=== PATIENT | male | born 1980 | race Caucasian/White ===

== ENCOUNTER 2022-01-23 12:18 | Emergency (ER) | payer MEDICAID, OTHER ==
[~2022-01-23] VITALS: Ht 116.8 cm; Wt 124.0 kg
[2022-01-23] MEDS ORDERED: AMBR10TA4 PO ×2 (13:55→15:12)
[2022-01-23 14:02] VITALS: BP 132/90
== END 2022-01-23 14:06 | disposition home or self-care (01) ==
LOC: ER 12:22
DX: I10 Essential (primary) hypertension (principal); Z79.899 Other long term (current) drug therapy; Z88.0 Allergy status to penicillin; Z76.0 Encounter for issue of repeat prescription

== ENCOUNTER 2022-05-08 09:46 | Inpatient (IN) | payer MEDICAID ==
[~2022-05-08] VITALS: Ht 190.5 cm; Wt 124.3 kg
[~2022-05-08 09:46] MED LIST: AMBR10TA4 PO
[2022-05-08 10:35] LABS: Urine Bacteria None Seen /hpf (None Seen); Urine WBC None Seen /hpf (0 - 3)
[2022-05-08 10:45] LABS: Albumin 3.8 g/dL (3.4-5.0); Calcium 9.2 mg/dL (8.5-10.1); Magnesium 2.4 mg/dL (1.6-2.6); Potassium 4.5 mmol/L (3.5-5.1)
[2022-05-08 10:46] LABS: Basophils # (auto) 0.1 10 ^3/uL (0-0.2); Basophils % (auto) 0.7 % (0.0-2.0); Eosinophils # (auto) 0.2 10 ^3/uL (0-0.8); Eosinophils % (auto) 2.6 % (0.0-7.0); Hematocrit 48.2 % (41.0-53.0); Hemoglobin 16.4 g/dL (13.5-17.5); Lymphocytes # (auto) 1.8 10 ^3/uL (0.4-5.4); Lymphocytes % (auto) 22.5 % (10.0-50.0); Mean Corpuscular Hemoglobin 32.3 pg (28.0-32.0); Mean Corpuscular Hgb Conc. 34.1 g/dL (32.0-36.0); Mean Corpuscular Volume 94.7 fL (80.0-100.0); Monocytes # (auto) 0.7 10 ^3/uL (0-1.3); Monocytes % (auto) 9.2 % (0.0-12.0); Neutrophils # (auto) 5.3 10 ^3/uL (1.6-8.6); Nucleated Red Blood Cells % 0.2 %; Red Blood Cells 5.09 10^6/uL (4.5-5.90); Red Cell Distribution Width 14.6 % (11.8-14.3); White Blood Cell 8.2 10^3/uL (4.4-10.8)
[2022-05-08 10:48] LABS: BUN/Creatinine Ratio 14.2; Total Protein 6.6 g/dL (6.4-8.2)
[2022-05-08 10:53] LABS: INR 0.96 (0.9-1.15); Partial Thromboplastin Time 28.5 sec (24.6-33.4)
[2022-05-08] MEDS ORDERED: LEVO750T64 PO (10:56)
[2022-05-08] MEDS ORDERED: cefTRIAXone SOD 1,000 MG VL IM ONE (11:00)
[2022-05-08] MEDS ORDERED: ENOXAPARIN SOD 120 MG/0.8 ML SYRINGE SC ONE (11:30)
[2022-05-08] MEDS ORDERED: ASPirin 325 MG TAB PO ONE (11:30)
[2022-05-08 12:03] LABS: Urine Blood Normal /uL (Negative)
[2022-05-08] MEDS ORDERED: ONDANSETRON HCL 4 MG/2 ML VIAL IV PRN (13:45)
[2022-05-08] MEDS ORDERED: ACETAMINOPHEN 325 MG TAB PO PRN (13:45)
[2022-05-08] MEDS ORDERED: HYDROcodone-ACET 5/325MG TAB PO PRN (13:45)
[2022-05-08] MEDS ORDERED: DOCUSATE SOD 100 MG CAP PO PRN (13:45)
[2022-05-08] MEDS ORDERED: NITROGLYCERIN 0.4 MG SL TAB SL PRN (13:45)
[2022-05-08] MEDS ORDERED: MORPHINE SULFATE INJ 2 MG/ml SYRG IV PRN (13:45)
[2022-05-08] MEDS ORDERED: FURO40TA4 PO (13:50)
[2022-05-08] MEDS ORDERED: ALBUTEROL SULF 2.5 MG/0.5ML(0.5%) NEB SOLN NEB PRN (14:15)
[2022-05-08] MEDS ORDERED: DEXTROSE (50%) 50ML SYRG IV PRN (14:15)
[2022-05-08] MEDS ORDERED: IPRATROPIUM BROM 0.5 MG/2.5ML INH SOL NEB PRN (14:15)
[2022-05-08 14:49] VITALS: BP 123/70
[2022-05-08] MEDS ORDERED: LIDOCAINE 1% HCL (LOCAL ANESTH.) INJ 20ML MDV ONE (15:33)
[2022-05-08] MEDS: SODIUM CHLOR 0.9% PF (SALINE LOCK) 10ML VIAL/SYR IV SCH ×2 (15:53→21:46)
[2022-05-08 16:00] VITALS: BP 108/59
[2022-05-08] MEDS ORDERED: METF-370 PO (16:09)
[2022-05-08] MEDS ORDERED: POTA10TA51 PO (16:09)
[2022-05-08] MEDS ORDERED: SILD20TA PO (16:09)
[2022-05-08] MEDS ORDERED: ASPI-543 PO (16:09)
[2022-05-08] MEDS: FUROSEMIDE 40 MG TAB PO SCH (17:14)
[2022-05-08] MEDS: InsuLIN REG 1unit/0.01ml Soln (100units/ml) SC SCH (17:15)
[2022-05-08] MEDS: ACCU-CHEK COMFORT CURVE STRIP VI SCH ×2 (17:15→21:47)
[2022-05-08 20:00] VITALS: BP 101/63
[2022-05-08] MEDS: SILDENAFIL CITRATE 20 MG TAB PO SCH (20:35)
[2022-05-08] MEDS: ATORVASTATIN 20 MG TAB PO SCH (21:46)
[2022-05-08 22:00] VITALS: BP 103/57
[2022-05-08] MEDS ORDERED: InsuLIN REG 1unit/0.01ml Soln (100units/ml) SC SCH (22:00)
[2022-05-09 00:50] VITALS: BP 103/57
[2022-05-09 05:00] VITALS: BP 108/64
[2022-05-09 06:08] LABS: Basophils # (auto) 0.1 10 ^3/uL (0-0.2); Basophils % (auto) 0.8 % (0.0-2.0); Eosinophils # (auto) 0.3 10 ^3/uL (0-0.8); Eosinophils % (auto) 3.9 % (0.0-7.0); Hematocrit 45.2 % (41.0-53.0); Hemoglobin 15.8 g/dL (13.5-17.5); Lymphocytes % (auto) 27.8 % (10.0-50.0); Mean Corpuscular Hemoglobin 32.9 pg (28.0-32.0); Mean Corpuscular Hgb Conc. 35.1 g/dL (32.0-36.0); Mean Corpuscular Volume 93.8 fL (80.0-100.0); Monocytes # (auto) 0.8 10 ^3/uL (0-1.3); Neutrophils % (auto) 56.5 % (37.0-80.0); Nucleated Red Blood Cells % 0.1 %; Red Blood Cells 4.82 10^6/uL (4.5-5.90); Red Cell Distribution Width 14.6 % (11.8-14.3)
[2022-05-09] MEDS: FUROSEMIDE 40 MG TAB PO SCH ×2 (06:11→17:16)
[2022-05-09] MEDS: SODIUM CHLOR 0.9% PF (SALINE LOCK) 10ML VIAL/SYR IV SCH ×3 (06:11→21:43)
[2022-05-09] MEDS: ACCU-CHEK COMFORT CURVE STRIP VI SCH ×3 (06:12→17:15)
[2022-05-09] MEDS: InsuLIN REG 1unit/0.01ml Soln (100units/ml) SC SCH ×3 (06:12→17:00)
[2022-05-09 06:35] LABS: Potassium 4.6 mmol/L (3.5-5.1)
[2022-05-09 06:45] LABS: Albumin 3.4 g/dL (3.4-5.0); BUN/Creatinine Ratio 12.8; Calcium 8.6 mg/dL (8.5-10.1); Total Protein 5.9 g/dL (6.4-8.2)
[2022-05-09] MEDS: ENOXAPARIN SOD 40 MG/0.4 ML SYRINGE SC SCH (08:10)
[2022-05-09] MEDS: SILDENAFIL CITRATE 20 MG TAB PO SCH ×3 (08:10→19:41)
[2022-05-09] MEDS: ASPirin 81 mg TAB PO SCH (08:10)
[2022-05-09] MEDS: PANTOPRAZOLE 40 MG/10 ML VIAL INJ IV SCH (08:10)
[2022-05-09 09:00] VITALS: BP 153/81
[2022-05-09] MEDS: NICOTINE 7MG/24HR TOPICAL PATCH TD SCH (10:40)
[2022-05-09] MEDS ORDERED: CARVEDILOL 3.125 MG TAB PO ONE (12:30)
[2022-05-09 12:59] LABS: Cholesterol 113 mg/dL (< 200); HDL Cholesterol 46 mg/dL (40-59); LDL Cholesterol 66 mg/dL (< 100); Triglycerides 79 mg/dL (< 150)
[2022-05-09 13:00] VITALS: BP 112/61
[2022-05-09] MEDS ORDERED: ALBUTEROL MEDNEB 2.5 mg/3ml NEB NEB PRN (13:00)
[2022-05-09 17:13] VITALS: BP 114/61
[2022-05-09] MEDS: ATORVASTATIN 20 MG TAB PO SCH (19:41)
[2022-05-09 22:00] VITALS: BP 98/56
[2022-05-09] MEDS: CARVEDILOL 3.125 MG TAB PO SCH (22:00)
[2022-05-10 05:00] VITALS: BP 114/58
[2022-05-10] MEDS: SODIUM CHLOR 0.9% PF (SALINE LOCK) 10ML VIAL/SYR IV SCH ×2 (05:44→14:00)
[2022-05-10] MEDS: FUROSEMIDE 40 MG TAB PO SCH (05:45)
[2022-05-10] MEDS: PANTOPRAZOLE 40 MG/10 ML VIAL INJ IV SCH (07:45)
[2022-05-10] MEDS: CARVEDILOL 3.125 MG TAB PO SCH (07:46)
[2022-05-10] MEDS: ENOXAPARIN SOD 40 MG/0.4 ML SYRINGE SC SCH (07:46)
[2022-05-10] MEDS: ASPirin 81 mg TAB PO SCH (07:46)
[2022-05-10] MEDS: SILDENAFIL CITRATE 20 MG TAB PO SCH ×2 (07:46→14:33)
[2022-05-10] MEDS: NICOTINE 7MG/24HR TOPICAL PATCH TD SCH (07:48)
[2022-05-10 09:00] VITALS: BP 124/71
[2022-05-10] MEDS ORDERED: NICOTINE 21MG/24 HR TOPICAL PATCH TD ONE (12:30)
[2022-05-10 13:00] VITALS: BP 107/65
[2022-05-10 14:55] VITALS: BP 107/65
== END 2022-05-10 15:35 | disposition home or self-care (01) | DRG 203 ==
LOC: ER 09:48 → TELE 13:44 → TELE-EAST 16:20
PROVIDERS: ADMIT Nurse Practitioner Family; ATTEND Student in an Organized Health Care Education/Training Program
PROC: 5A09357 Assistance with Respiratory Ventilation, Less than 24 Consecutive Hours, Continuous Positive Airway Pressure (ICD-10-PCS; principal; 2022-05-09)
DX: R07.89 Other chest pain (principal); I27.20 Pulmonary hypertension, unspecified; I13.0 Hypertensive heart and chronic kidney disease with heart failure and stage 1 through stage 4 chronic kidney disease, or unspecified chronic kidney disease; I50.22 Chronic systolic (congestive) heart failure; I42.8 Other cardiomyopathies; E11.22 Type 2 diabetes mellitus with diabetic chronic kidney disease; E66.9 Obesity, unspecified; Z20.822 Contact with and (suspected) exposure to COVID-19; G47.30 Sleep apnea, unspecified; N18.31 Chronic kidney disease, stage 3a; F17.210 Nicotine dependence, cigarettes, uncomplicated; J44.9 Chronic obstructive pulmonary disease, unspecified; Z80.1 Family history of malignant neoplasm of trachea, bronchus and lung; Z82.49 Family history of ischemic heart disease and other diseases of the circulatory system; Z83.3 Family history of diabetes mellitus; Z68.34 Body mass index [BMI] 34.0-34.9, adult; Z88.0 Allergy status to penicillin
CPT/HCPCS: 36415; 71045; 80053; 80061; 81001; 82962; 83036; 83735; 83880; 84443; 84484; 85025; 85610; 85730; 87426; 93005; 93306; 94660; 96372; 99291; C9113; G0378; J0696; J1815; J2001

== ENCOUNTER 2022-07-20 11:33 | Inpatient (IN) | payer MEDICAID ==
[~2022-07-20] VITALS: Ht 185.4 cm; Wt 125.1 kg
[2022-07-20 12:11] LABS: Basophils # (auto) 0.1 10 ^3/uL (0-0.2); Basophils % (auto) 0.8 % (0.0-2.0); Eosinophils # (auto) 0.3 10 ^3/uL (0-0.8); Hematocrit 48.7 % (41.0-53.0); Hemoglobin 16.5 g/dL (13.5-17.5); Lymphocytes # (auto) 2.2 10 ^3/uL (0.4-5.4); Lymphocytes % (auto) 24.2 % (10.0-50.0); Mean Corpuscular Hemoglobin 31.4 pg (28.0-32.0); Mean Corpuscular Hgb Conc. 33.8 g/dL (32.0-36.0); Mean Corpuscular Volume 92.8 fL (80.0-100.0); Monocytes # (auto) 0.8 10 ^3/uL (0-1.3); Monocytes % (auto) 8.7 % (0.0-12.0); Neutrophils # (auto) 5.8 10 ^3/uL (1.6-8.6); Neutrophils % (auto) 63.3 % (37.0-80.0); Nucleated Red Blood Cells % 0.2 %; Red Blood Cells 5.25 10^6/uL (4.5-5.90); White Blood Cell 9.2 10^3/uL (4.4-10.8)
[2022-07-20 12:30] LABS: INR 1.07 (0.9-1.15); Partial Thromboplastin Time 30.9 sec (24.6-33.4)
[2022-07-20 12:36] LABS: Albumin 3.9 g/dL (3.4-5.0); Calcium 9.2 mg/dL (8.5-10.1); Magnesium 2.2 mg/dL (1.6-2.6); Potassium 4.3 mmol/L (3.5-5.1)
[2022-07-20 12:38] LABS: BUN/Creatinine Ratio 13.6 (10.0-20.0)
[2022-07-20 12:41] LABS: Bilirubin, Total 1.2 mg/dL (0.2-1.0); Total Protein 7.1 g/dL (6.4-8.2)
[2022-07-20] MEDS ORDERED: NITROGLYCERIN 0.4 MG SL TAB SL PRN (15:15)
[2022-07-20] MEDS ORDERED: HYDROcodone-ACET 5/325MG TAB PO PRN (15:15)
[2022-07-20] MEDS ORDERED: SODIUM CHLORIDE 0.9% 1,000 ML IV ONE (15:15)
[2022-07-20] MEDS ORDERED: DEXTROSE (50%) 50ML SYRG IV PRN (15:15)
[2022-07-20] MEDS ORDERED: ENOXAPARIN SOD 100 MG/1 ML SYRINGE SC ONE (15:15)
[2022-07-20] MEDS ORDERED: ACETAMINOPHEN 325 MG TAB PO PRN (15:15)
[2022-07-20] MEDS ORDERED: MORPHINE SULFATE INJ 2 MG/ml SYRG IV PRN ×2 (15:15)
[2022-07-20] MEDS ORDERED: PANTOPRAZOLE 40 MG/10 ML VIAL INJ IV ONE (15:30)
[2022-07-20 16:19] LABS: Cholesterol 158 mg/dL (< 200); HDL Cholesterol 45 mg/dL (40-59); LDL Cholesterol 95 mg/dL (< 100); Triglycerides 125 mg/dL (< 150)
[2022-07-20] MEDS: InsuLIN REG 1unit/0.01ml Soln (100units/ml) SC SCH ×2 (17:00→21:27)
[2022-07-20] MEDS: ACCU-CHEK COMFORT CURVE STRIP VI SCH ×2 (17:00→21:28)
[2022-07-20 17:47] VITALS: BP 103/69
[2022-07-20 19:25] LABS: Urine Bacteria NONE SEEN /hpf (None Seen); Urine Blood Negative /uL (Negative); Urine Hyaline Cast FEW /lpf (0 - 2); Urine WBC <1 /hpf (0 - 3)
[2022-07-20 19:48] LABS: Alcohol, Urine < 3.0 mg/dL (0-10); Amphetamine Screen, Urine NEGATIVE (NEGATIVE); Barbiturate Scree,Urine NEGATIVE (NEGATIVE); Benzodiazephine Screen, Urine NEGATIVE (NEGATIVE); Cannabinoid Screen, Urine POSITIVE (NEGATIVE)
[2022-07-20 19:56] LABS: Cocaine Screen, Urine NEGATIVE (NEGATIVE); Opiate Scree,Urine NEGATIVE (NEGATIVE); Phencyclidine Screen, Urine NEGATIVE (NEGATIVE)
[2022-07-20 20:00] VITALS: BP 103/69
[2022-07-20] MEDS: SILDENAFIL CITRATE 20 MG TAB PO SCH (21:26)
[2022-07-20 22:00] VITALS: BP 103/62
[2022-07-21 05:00] VITALS: BP 98/59
[2022-07-21] MEDS: SILDENAFIL CITRATE 20 MG TAB PO SCH ×2 (05:10→14:21)
[2022-07-21 06:02] LABS: Basophils # (auto) 0.1 10 ^3/uL (0-0.2); Basophils % (auto) 0.9 % (0.0-2.0); Eosinophils # (auto) 0.4 10 ^3/uL (0-0.8); Eosinophils % (auto) 4.7 % (0.0-7.0); Hematocrit 44.2 % (41.0-53.0); Hemoglobin 15.1 g/dL (13.5-17.5); Lymphocytes # (auto) 2.2 10 ^3/uL (0.4-5.4); Lymphocytes % (auto) 27.1 % (10.0-50.0); Mean Corpuscular Hemoglobin 31.7 pg (28.0-32.0); Mean Corpuscular Hgb Conc. 34.1 g/dL (32.0-36.0); Monocytes # (auto) 0.8 10 ^3/uL (0-1.3); Monocytes % (auto) 9.2 % (0.0-12.0); Neutrophils # (auto) 4.8 10 ^3/uL (1.6-8.6); Neutrophils % (auto) 58.1 % (37.0-80.0); Nucleated Red Blood Cells % 0.3 %; Red Blood Cells 4.76 10^6/uL (4.5-5.90); Red Cell Distribution Width 13.9 % (11.8-14.3); White Blood Cell 8.3 10^3/uL (4.4-10.8)
[2022-07-21 06:18] LABS: Potassium 3.5 mmol/L (3.5-5.1)
[2022-07-21 06:26] LABS: Albumin 3.4 g/dL (3.4-5.0); BUN/Creatinine Ratio 14.7 (10.0-20.0); Bilirubin, Total 0.6 mg/dL (0.2-1.0); Calcium 8.3 mg/dL (8.5-10.1); Total Protein 6.2 g/dL (6.4-8.2)
[2022-07-21] MEDS: ACCU-CHEK COMFORT CURVE STRIP VI SCH (06:33)
[2022-07-21] MEDS: InsuLIN REG 1unit/0.01ml Soln (100units/ml) SC SCH (06:33)
[2022-07-21 09:00] VITALS: BP 105/61
[2022-07-21] MEDS ORDERED: POTASSIUM CHL 10 Meq TABLET PO SCH (10:00)
[2022-07-21] MEDS ORDERED: ENOXAPARIN SOD 40 MG/0.4 ML SYRINGE SC SCH (10:00)
[2022-07-21] MEDS ORDERED: FUROSEMIDE 20 MG/2 ML VIAL IV SCH (10:00)
[2022-07-21] MEDS ORDERED: PANTOPRAZOLE 40 MG/10 ML VIAL INJ IV SCH (10:00)
[2022-07-21] MEDS ORDERED: ASPirin-EC 81 mg tab PO SCH (10:00)
[2022-07-21] MEDS ORDERED: NICOTINE 21MG/24 HR TOPICAL PATCH TD SCH (10:15)
[2022-07-21 13:00] VITALS: BP 102/61
[2022-07-21 15:17] VITALS: BP 105/61
== END 2022-07-21 15:45 | disposition home or self-care (01) | DRG 469 ==
LOC: ER 11:33 → TELE 15:09 → TELE-CENTR 17:33
PROVIDERS: ADMIT Registered Nurse; ATTEND Internal Medicine Pulmonary Disease
DX: N17.9 Acute kidney failure, unspecified (principal); I27.20 Pulmonary hypertension, unspecified; I13.0 Hypertensive heart and chronic kidney disease with heart failure and stage 1 through stage 4 chronic kidney disease, or unspecified chronic kidney disease; I50.9 Heart failure, unspecified; E11.22 Type 2 diabetes mellitus with diabetic chronic kidney disease; E78.5 Hyperlipidemia, unspecified; E66.01 Morbid (severe) obesity due to excess calories; F17.210 Nicotine dependence, cigarettes, uncomplicated; N18.32 Chronic kidney disease, stage 3b; Z80.9 Family history of malignant neoplasm, unspecified; Z83.3 Family history of diabetes mellitus; Z88.0 Allergy status to penicillin; I25.2 Old myocardial infarction; Z68.35 Body mass index [BMI] 35.0-35.9, adult
CPT/HCPCS: 36415; 71046; 80053; 80061; 80307; 81001; 83735; 83880; 84443; 84484; 85025; 85610; 85730; 93005; C9113; G0378

== ENCOUNTER → 2022-07-20 | Outpatient (CLI) | payer MEDICAID ==
[~2022-07-20] MED LIST changes: +ASPI-543 PO; +FURO40TA4 PO; +METF-370 PO; +POTA10TA51 PO; +SILD20TA PO
[2022-07-20 11:05] LABS: Albumin 3.9 g/dL (3.4-5.0); BUN/Creatinine Ratio 12.8 (10.0-20.0); Bilirubin, Total 1.5 mg/dL (0.2-1.0); Total Protein 7.5 g/dL (6.4-8.2)
== END | disposition home or self-care (01) ==
LOC: LAB 09:34
PROVIDERS: ATTEND Internal Medicine
DX: E11.22 Type 2 diabetes mellitus with diabetic chronic kidney disease (principal); I12.9 Hypertensive chronic kidney disease with stage 1 through stage 4 chronic kidney disease, or unspecified chronic kidney disease; N18.31 Chronic kidney disease, stage 3a; E66.9 Obesity, unspecified
CPT/HCPCS: 36415; 80053; 80061; 82043; 82306; 82607; 83036; 84484; 85379

== ENCOUNTER → 2022-09-01 | Outpatient (CLI) | payer MEDICAID ==
[2022-09-01 09:07] LABS: Albumin 3.8 g/dL (3.4-5.0); Calcium 8.7 mg/dL (8.5-10.1); Potassium 3.9 mmol/L (3.5-5.1)
[2022-09-01 09:11] LABS: BUN/Creatinine Ratio 14.3 (10.0-20.0); Bilirubin, Total 0.7 mg/dL (0.2-1.0); Total Protein 7.3 g/dL (6.4-8.2)
== END | disposition home or self-care (01) ==
LOC: LAB 08:09
PROVIDERS: ATTEND Internal Medicine
DX: E11.22 Type 2 diabetes mellitus with diabetic chronic kidney disease (principal); N18.30 Chronic kidney disease, stage 3 unspecified
CPT/HCPCS: 36415; 80053; 82607

== ENCOUNTER → 2022-10-21 | Outpatient (CLI) | payer MEDICAID ==
[~2022-10-21] MED LIST changes: +ALBUTEROL SULF 2.5 MG/0.5ML(0.5%) NEB SOLN ONE
== END | disposition home or self-care (01) ==
LOC: RT 08:35
PROVIDERS: ATTEND Internal Medicine Pulmonary Disease
DX: J44.9 Chronic obstructive pulmonary disease, unspecified (principal); I27.20 Pulmonary hypertension, unspecified
CPT/HCPCS: 94060; 94727; 94729

== ENCOUNTER 2024-05-29 07:03 | Emergency (ER) | payer MEDICAID ==
[~2024-05-29] VITALS: Ht 185.4 cm; Wt 110.2 kg
[~2024-05-29 07:03] MED LIST changes: -ALBUTEROL SULF 2.5 MG/0.5ML(0.5%) NEB SOLN ONE; +POTA-36 PO; -POTA10TA51 PO
[2024-05-29 08:04] VITALS: BP 131/77; PULSE 87; RESP 20; TEMP 98; O2SAT 93
--- NOTE | 2024-05-29 08:41 | ED.PDOC ---
HPI Comments 43-year-old male with no pertinent MHx presents for laceration to the left forehead that occurred 1 hour ago after he hit his head on a corner cabinet. Bleeding resolved at this time. Sustained a 2 cm vertical laceration to the left forehead.. Denies LOC. Not on blood thinners Chief Complaint: Laceration Time Seen by MD: 07:45 Primary Care Provider: JOSE ANTONIO Reviewed Notes: Nurses Notes, Medications, Allergies Allergies: Coded Allergies: Penicillins (Verified Allergy, Unknown, 01/23/22) Home Meds Active Scripts Ambrisentan (Ambrisentan) 10 Mg Tab, 10 MG PO DAILY, #30 TAB Prov:MICHEAL LUQUE 01/23/22 Reported Medications Aspirin (Aspir-Low) 81 Mg Tab, 81 MG PO DAILY for 30 Days, MG 05/08/22 Metformin Hydrochloride (Metformin Hcl) 500 Mg Tab, 500 MG PO IBID for 30 Days, MG 05/08/22 Sildenafil Citrate (Revatio) 20 Mg Tab, 40 MG PO TID, TAB 05/08/22 Potassium Chloride (POTASSIUM CHLORIDE CR) 10 Meq Tb, 1 TAB PO DAILY, #30 TAB 5 Refills 05/08/22 Furosemide (Furosemide) 40 Mg Tab, 1 TAB PO BID 05/08/22 Information Source: Patient Mode of Arrival: Ambulatory Complexity: Intermediate Laceration Length (cm): 2 Past Medical History PAST MEDICAL HISTORY: CHF, DM, High Lipids, HTN, [place] Family History Family History: Family hx of DM, Family hx of Cancer, Family hx of heart fide Social History Smoker: Cigarettes Alcohol: Occasionally Drugs: Marijuana Lives In: Home All Other Systems: Reviewed and Negative (per hpi) Physical Exam General Appearance: No Apparent Distress, Normal HEENT: Head (2 cm vertical lac. hemostasis. no fb. no ttp), Normal ENT Inspection, Pharynx Normal, TMs Normal Neck: Full Range of Motion, Non-Tender, Normal, Normal Inspection Respiratory: Chest Non-Tender, Lungs Clear, No Accessory Muscle Use, No Respiratory Distress, Normal Breath Sounds Cardiovascular: No Edema, No JVD, No Murmur, No Gallop, Normal Peripheral Pulses, Regular Rate/Rhythm Breast Exam: Deferred Gastrointestinal: No Organomegaly, Non Tender, No Pulsatile Mass, Normal Bowel Sounds, Soft Genitalia: Deferred Pelvic: Deferred Rectal: Deferred Extremities: No calf tenderness, Normal capillary refill, Normal inspection, Normal range of motion, Non-tender, No pedal edema Musculoskeletal : Apperance: Normal Neurologic: Alert, seam closer II-XII nml as Tested, No Motor Deficits, Normal Affect, Normal Mood, No Sensory Deficits Cerebellar Function: Normal Reflexes: Normal Skin: Dry, Normal Color, Warm Lymphatic: No Adenopathy Was a procedure done? Was a procedure done?: Yes Sedation Sedation?: No Laceration Repair : Location forehead Length 2 Anesthetic: Lidocaine Laceration Repair Prep: Saline, Betadine Laceration Repair Wound Comple: epidermis/dermis repair Laceration Repair: Size (5-0), Simple, Bacitracin, Non-adherent gauze, Gauze Informed consent obtained: Yes Risks, benefits, and alternati: Yes Differential diagnosis Generic Laceration: Abrasion/Contusion, Laceration X-Ray, Labs, Meds, VS Vital Signs Date Time Temp Pulse Resp B/P (MAP) Pulse Ox O2 Delivery O2 Flow Rate FiO2 05/29/24 08:04 98.0 87 20 131/77 (95) 93 98.0 05/29/24 07:21 97.9 94 20 126/86 (99) 94 Current Medications Medications (Trade) Dose Ordered Sig/Derrick Route Start Time Stop Time Status Last Admin Neomycin/ Polymyxin/ Bacitracin (Triple Antibiotic) 1 applic ONCE ONCE TOP 05/29/24 08:45 05/29/24 08:59 DC 05/29/24 09:08 X-Ray, Labs, Meds, VS Comment The skin edges of the laceration were infiltrated with 1% lidocaine The skin surrounding the laceration was scrubbed with Betadine soaked sterile gauze The laceration was irrigated under high-pressure with a 60 mL syringe A total of 1L sterile water was used. Including diluted Betadine solution The laceration was prepped in sterile fashion with sterile drapes On examination under direct light, there was no foreign body seen The laceration was repaired in simple interrupted technique There was no continuing bleeding on repair. There were no complications related to repair Education and follow-up instructions provided Wound check in 2 days Return sooner for signs of infection such as fevers, increased pain, redness, green, yellow discharge, or any concerns Keep wound dry for 24 to 48 hours; dry dressing may be changed Protect from sunlight and keep area clean and dry. Use soap and water if it gets dirty High risk of possible scarring and education provided on ways to minimize scarring after wound heals Also provided education on possible complications post procedure including wound dehiscence, infection, etc. Time of 1ST Reevaluation: 08:37 Reevaluation 1ST: Improved Patient Education/Counseling: Diagnosis, Treatment Family Education/Counseling: Diagnosis, Treatment Departure 1 Departure Time of Disposition: 09:37 Impression: Primary Impression: Laceration of forehead Qualified Codes: S01.81XA - Laceration without foreign body of other part of head, initial encounter Disposition: HOME / SELF CARE / HOMELESS Condition: Stable Discharged With: Self Critical Care Note Critical Care Time?: No Stability Stability form required: No Heart Score Heart Score: Heart Score Response (Comments) Value History N/A 0 EKG N/A 0 Age N/A 0 Risk Factors N/A 0 Troponin N/A 0 Total 0 MERCEDES VALDEZ NP May 29, 2024 08:41
[2024-05-29] MEDS: NEOMYCIN-BACITRACIN-POLYM UNITDOSE PKG TOP OINT TOP ONE (09:08)
[2024-05-29] MEDS: LIDOCAINE 1% HCL (LOCAL ANESTH.) INJ 20ML MDV ID ONE (09:08)
== END 2024-05-29 09:41 | disposition home or self-care (01) ==
LOC: ER 07:03
DX: S01.81XA Laceration without foreign body of other part of head, initial encounter (principal); I11.0 Hypertensive heart disease with heart failure; I50.9 Heart failure, unspecified; E78.00 Pure hypercholesterolemia, unspecified; I25.2 Old myocardial infarction; F17.210 Nicotine dependence, cigarettes, uncomplicated; Z79.82 Long term (current) use of aspirin; Z79.899 Other long term (current) drug therapy; Z88.0 Allergy status to penicillin; W22.03XA Walked into furniture, initial encounter; Y93.89 Activity, other specified; Y92.89 Other specified places as the place of occurrence of the external cause; Y99.8 Other external cause status
CPT/HCPCS: 12011; 99282; J2003